=== PATIENT | female | born 1985 | race Two or more races ===

== ENCOUNTER 2017-06-22 18:32 | Emergency (ER) | payer OTHER ==
[2017-06-22] MEDS: BACITRACIN TOPICAL OINT 14GM TUBE. TP (19:46)
[2017-06-22] MEDS: DIPHTH,PERTUSS(ACELL),TET TOX 0.5 ML DISP.SYRIN. VAX IM (19:46)
== END 2017-06-22 20:10 | disposition home or self-care (01) ==
LOC: ER 18:32
DX: O26.892 Other specified pregnancy related conditions, second trimester (principal); S20.419A Abrasion of unspecified back wall of thorax, initial encounter; S40.811A Abrasion of right upper arm, initial encounter; Z3A.25 25 weeks gestation of pregnancy; W54.0XXA Bitten by dog, initial encounter; Y93.89 Activity, other specified; Y99.8 Other external cause status; Y92.89 Other specified places as the place of occurrence of the external cause
CPT/HCPCS: 90471; 90715; 99283-25

== ENCOUNTER 2017-09-23 20:00 | Inpatient (IN) | payer OTHER ==
[2017-09-23] MEDS ORDERED: 0.9 % SODIUM CHLORIDE 10 ML DISP.SYRIN. IV (20:15)
[2017-09-23] MEDS ORDERED: OXYTOCIN 30 UNIT/500 ML PREMIX 500 ML IV (20:15)
[2017-09-23] MEDS ORDERED: LIDOCAINE 1% PF 30 ML VIAL. INJ (20:15)
[2017-09-23] MEDS ORDERED: BUTORPHANOL 2 MG/ML VIAL. IV ×2 (20:15)
[2017-09-23] MEDS ORDERED: diphenhydrAMINE HCL 25 MG CAPSULE PO (20:15)
[2017-09-23] MEDS ORDERED: IBUPROFEN 800 MG TABLET. PO (20:15)
[2017-09-23] MEDS ORDERED: TERBUTALINE 1 MG/ML VIAL. SQ (20:15)
[2017-09-23] MEDS: IV RINGERS,LACTATED 1000ML 1,000 ML IV (20:48)
[2017-09-23] MEDS: DINOPROSTONE 10 MG SUPP.VAG VG (20:48)
[2017-09-23 20:56] LABS: ADD MAN DIFF? NO
[2017-09-23 21:00] LABS: BASO % 1 % (0-3); EOS # 0.1 x10^3/uL (0.0-0.7); EOS % 1 % (0-3); HEMATOCRIT 32.6 % (36.0-47.0); HEMOGLOBIN 11.4 g/dL (12.0-15.5); LYMPH # 2.1 x10^3/uL (1.0-4.8); LYMPH % 22 % (24-48); MEAN CORPUSCULAR HEMOGLOBIN 30 pg (25-35); MEAN CORPUSCULAR HGB CONC 35 g/dL (31-37); MEAN CORPUSCULAR VOLUME 87 fL (79-100); MONO # 0.7 x10^3/uL (0.0-1.1); MONO % 7 % (0-9); NEUT # 6.9 x10^3uL (1.8-7.7); NEUT % 70 % (31-73); PLATELET COUNT 225 x10^3/uL (140-400); RED BLOOD COUNT 3.74 x10^6/uL (3.50-5.40); RED CELL DISTRIBUTION WIDTH 14.5 % (11.5-14.5); WHITE BLOOD COUNT 9.8 x10^3/uL (4.0-11.0)
[2017-09-24] MEDS: IV RINGERS,LACTATED 1000ML 1,000 ML IV ×3 (05:50→18:11)
[2017-09-24] MEDS: PENICILLIN G K 5,000,000 UNIT in IV NORMAL SALINE 100ML 100 ML IV (05:50)
[2017-09-24] MEDS: OXYTOCIN 30 UNIT/500 ML PREMIX 500 ML IV (05:51)
[2017-09-24] MEDS: PENICILLIN G K 2,500,000 UNIT in IV NORMAL SALINE 50ML 50 ML IV ×4 (10:21→22:00)
[2017-09-24] MEDS: fentaNYL PF VIAL 100 MCG/2 ML VIAL IV (10:58)
[2017-09-24] MEDS ORDERED: ROPIVacaine 0.2% IN 0.9%NACL PF 40 MG/20 ML DISP.SYRIN. ×2 (12:54→13:00)
[2017-09-24] MEDS ORDERED: L&D EPIDURAL SYRINGE 50 ML EP (12:55)
[2017-09-24] MEDS ORDERED: L&D EPIDURAL 50 ML SYRINGE. EP (13:00)
[2017-09-24] MEDS ORDERED: oxyCODONE/APAP 5/325 1 TAB TABLET PO (15:30)
[2017-09-24] MEDS ORDERED: HYDROCORTISONE 1% TOPICAL OINTMENT 30GM TUBE. TP (15:30)
[2017-09-24] MEDS ORDERED: OXYTOCIN 30 UNIT/500 ML PREMIX 500 ML IV (15:30)
[2017-09-24] MEDS ORDERED: BENZOCAINE 20% TOPICAL AEROSOL SPRAY 57GM CAN. TP (15:30)
[2017-09-24] MEDS ORDERED: MMR per PROTOCOL. MC (15:30)
[2017-09-24] MEDS ORDERED: SIMETHICONE 80 MG TAB.CHEW PO (15:30)
[2017-09-24] MEDS ORDERED: ZOLPIDEM 5 MG TABLET. PO (15:30)
[2017-09-24] MEDS ORDERED: 0.9 % SODIUM CHLORIDE 10 ML DISP.SYRIN. IV (15:30)
[2017-09-24] MEDS ORDERED: MAGNESIUM HYDROXIDE 2,400 MG/30 ML ORAL.SUSP. PO (15:30)
[2017-09-24] MEDS ORDERED: diphenhydrAMINE HCL 25 MG CAPSULE PO (15:30)
[2017-09-24] MEDS ORDERED: PHENYLEPH/MINERAL OIL/PETROLAT RECTAL OINTMENT 28GM TUBE. RC (15:30)
[2017-09-24] MEDS: MAG HYDROX/ALUMINUM HYD/SIMETH 30 ML ORAL.SUSP PO (20:33)
[2017-09-24] MEDS: IBUPROFEN 800 MG TABLET. PO (22:42)
[2017-09-25] MEDS: PENICILLIN G K 2,500,000 UNIT in IV NORMAL SALINE 50ML 50 ML IV ×5 (02:00→18:00)
[2017-09-25 06:17] LABS: ADD MAN DIFF? NO
[2017-09-25 06:58] LABS: BASO # 0.1 x10^3/uL (0.0-0.2); BASO % 0 % (0-3); EOS # 0.1 x10^3/uL (0.0-0.7); EOS % 1 % (0-3); HEMATOCRIT 31.1 % (36.0-47.0); HEMOGLOBIN 10.5 g/dL (12.0-15.5); LYMPH # 2.8 x10^3/uL (1.0-4.8); LYMPH % 22 % (24-48); MEAN CORPUSCULAR HEMOGLOBIN 30 pg (25-35); MEAN CORPUSCULAR HGB CONC 34 g/dL (31-37); MEAN CORPUSCULAR VOLUME 88 fL (79-100); MONO # 0.9 x10^3/uL (0.0-1.1); MONO % 7 % (0-9); NEUT % 70 % (31-73); PLATELET COUNT 179 x10^3/uL (140-400); RED BLOOD COUNT 3.53 x10^6/uL (3.50-5.40); RED CELL DISTRIBUTION WIDTH 14.4 % (11.5-14.5); WHITE BLOOD COUNT 12.9 x10^3/uL (4.0-11.0)
[2017-09-25] MEDS: IV RINGERS,LACTATED 1000ML 1,000 ML IV ×2 (08:30→10:26)
[2017-09-25] MEDS ORDERED: LIDOCAINE 2% PF Vial for OR 5 ML VIAL. (08:40)
[2017-09-25] MEDS ORDERED: PROPOFOL 20 ML IV (08:40)
[2017-09-25] MEDS ORDERED: DEXAMETHASONE SOD PHOS 20 MG/5 ML VIAL. (08:40)
[2017-09-25] MEDS ORDERED: fentaNYL PF VIAL 100 MCG/2 ML VIAL (08:40)
[2017-09-25] MEDS ORDERED: ONDANSETRON PF 4 MG/2 ML VIAL. (08:40)
[2017-09-25] MEDS ORDERED: SUCCINYLCHOLINE 200 MG/10 ML VIAL. (08:41)
[2017-09-25] MEDS ORDERED: MORPHINE SULFATE 4 MG/ML DISP.SYRIN. IV (08:45)
[2017-09-25] MEDS ORDERED: ONDANSETRON PF 4 MG/2 ML VIAL. IV (08:45)
[2017-09-25] MEDS ORDERED: fentaNYL PF VIAL 100 MCG/2 ML VIAL IV (08:45)
[2017-09-25] MEDS ORDERED: LIDOCAINE 1% PF 2 ML VIAL. ID (08:45)
[2017-09-25] MEDS ORDERED: PROCHLORPERAZINE 10 MG/2 ML VIAL. IV (08:45)
[2017-09-25] MEDS: LIDOCAINE 1%/EPI 1:100,000 30 ML VIAL. IJ (09:06)
[2017-09-25] MEDS ORDERED: KETOROLAC 30 MG/ML INJ FOR OR. INJ (09:45)
[2017-09-25] MEDS ORDERED: DESFLURANE 31 TO 60 MINUTES IH (09:45)
[2017-09-25] MEDS ORDERED: SEVOFLURANE 31 TO 60 MINUTES. IH (09:45)
[2017-09-25] MEDS: fentaNYL PF VIAL 100 MCG/2 ML VIAL IV ×4 (09:52→11:41)
[2017-09-25] MEDS: FERROUS SULFATE 325 MG TABLET. PO ×2 (15:49→17:00)
[2017-09-25] MEDS: DOCUSATE SODIUM 100 MG CAPSULE. PO (15:49)
[2017-09-25] MEDS: IBUPROFEN 800 MG TABLET. PO (15:50)
[2017-09-25 18:13] LABS: RPR Non Reactive (Non Reactive)
[2017-09-25] MEDS: ACETAMINOPHEN 325 MG TABLET. PO (19:59)
[2017-09-26] MEDS: DOCUSATE SODIUM 100 MG CAPSULE. PO (09:05)
[2017-09-26] MEDS: IBUPROFEN 800 MG TABLET. PO (09:05)
== END 2017-09-26 13:50 | disposition home or self-care (01) | DRG 767 ==
LOC: 3 SO LND 20:00 → 3 NORTH 09-24 18:15
PROC: 0UL70CZ Occlusion of Bilateral Fallopian Tubes with Extraluminal Device, Open Approach (ICD-10-PCS; principal; 2017-09-25 08:57)
PROC: 10E0XZZ Delivery of Products of Conception, External Approach (ICD-10-PCS; 2017-09-25 08:57)
PROC: 3E0R3BZ Introduction of Anesthetic Agent into Spinal Canal, Percutaneous Approach (ICD-10-PCS; 2017-09-25 08:57)
PROC: 00HU33Z Insertion of Infusion Device into Spinal Canal, Percutaneous Approach (ICD-10-PCS; 2017-09-25 08:57)
PROC: 3E0P7VZ Introduction of Hormone into Female Reproductive, Via Natural or Artificial Opening (ICD-10-PCS; 2017-09-25 08:57)
PROC: 3E033VJ Introduction of Other Hormone into Peripheral Vein, Percutaneous Approach (ICD-10-PCS; 2017-09-25 08:57)
DX: O69.81X0 Labor and delivery complicated by cord around neck, without compression, not applicable or unspecified (principal); O98.82 Other maternal infectious and parasitic diseases complicating childbirth; O99.834 Other infection carrier state complicating childbirth; Z30.2 Encounter for sterilization; Z37.0 Single live birth; Z3A.39 39 weeks gestation of pregnancy; B95.1 Streptococcus, group B, as the cause of diseases classified elsewhere; Z22.330 Carrier of Group B streptococcus
CPT/HCPCS: 36415; 85025; 86593; 86850; 86900; 86901; A7015; G0378; G0379; J0330; J0690; J1100; J1885; J2405; J2540; J2590; J2704; J2795; J3010; J3490; J7120